=== PATIENT | female | born 1955 | race Two or more races ===

== ENCOUNTER 2016-12-06 20:30 | Inpatient (IN) | payer MEDICAID, MEDICARE, OTHER ==
[~2016-12-06] VITALS: Ht 165.1 cm; Wt 141.5 kg
[~2016-12-06 20:30] MED LIST: ASPI81TA2 PO; ATEN100T PO; BENA20TA2 PO; CALC-343 PO; CHOL100044 PO; CYAN100T3 PO; DIAZ10TA4 PO; FOLI1TAB16 PO; HYDR-429 PO; METF500T4 PO; OMEP20CA10 PO; PREG50CA PO; SIMV20TA6 PO
[2016-12-06 20:41] LABS: BASOPHILS # (AUTO) 0.2 /CMM (0.0-0.2); BASOPHILS % (AUTO) 2.6 % (0.0-2.0); DIFF TOTAL % 100 %; EOSINOPHILS # (AUTO) 0.3 /CMM (0.0-0.7); EOSINOPHILS % (AUTO) 4.5 % (0.0-6.0); HEMATOCRIT 40 % (33-45); HEMOGLOBIN 13.6 g/dL (11.5-14.8); LYMPHOCYTES # (AUTO) 1.9 /CMM (0.8-4.8); LYMPHOCYTES % (AUTO) 30.5 % (20.0-44.0); MEAN CORPUSCULAR HEMOGLOBIN 29 PG (26.0-33.0); MEAN CORPUSCULAR HGB CONC 34 g/dl (31.0-36.0); MEAN CORPUSCULAR VOLUME 86 fL (82-100); MONOCYTES # (AUTO) 0.3 /CMM (0.1-1.30); NEUTROPHILS # (AUTO) 3.6 /CMM (1.8-8.9); NEUTROPHILS % (AUTO) 57.4 % (43.0-81.0); PLATELET COUNT (AUTO) 162 /CMM (150-450); RED BLOOD CELL COUNT(AUTO) 4.68 MIL/uL (4.0-5.2); WHITE BLOOD COUNT (AUTO) 6.2 K/uL (4.3-11.0)
[2016-12-06 20:47] LABS: ANION GAP 12 (5-14); CALCIUM, SERUM 8.3 mg/dL (8.5-10.1); CARBON DIOXIDE 27 mmol/L (21-32); CHLORIDE 107 mmol/L (98-107); CREATININE 1.4 mg/dL (0.6-1.3); GFR 38 mL/min (>60); GLUCOSE 185 mg/dL (74-106); POTASSIUM 4.5 mmol/L (3.5-5.1); SODIUM SERUM 142 mmol/L (136-145); UREA NITROGEN, BLOOD 16 mg/dL (7-18)
[2016-12-06 20:54] LABS: ALANINE AMINOTRANSFERASE 16 U/L (12-78); ALBUMIN 3.2 g/dL (3.4-5.0); ASPARTATE AMINOTRANSFERASE 11 U/L (15-37); BILIRUBIN,TOTAL 0.3 mg/dL (0.2-1.0); TOTAL PROTEIN, SERUM 6.4 g/dL (6.4-8.2)
[2016-12-06 21:00] LABS: INR 0.91 (0.87-1.13); PROTHROMBIN TIME 9.8 SECS (9.5-12.7)
[2016-12-06] MEDS ORDERED: ENALAPRILAT DIHYD. (2.5MG/ML) 1.25 MG/ML VIAL IV ONE ×2 (21:00→21:01)
[2016-12-06 21:01] LABS: INDIRECT BILIRUBIN 0.3 mg/dL (0.0-1.1)
[2016-12-06 21:02] LABS: TROPONIN I < 0.017 ng/mL (0.00-0.056)
[2016-12-06] MEDS ORDERED: IV NS 0.9% 1,000 ML IV PRN ×2 (21:47→22:00)
[2016-12-06] MEDS ORDERED: ZOLPIDEM TARTRATE 5 MG TABLET PO PRN ×2 (22:00→22:15)
[2016-12-06] MEDS ORDERED: HYDROCODONE/APAP 5/325MG 1 EACH TABLET PO PRN ×2 (22:00→22:15)
[2016-12-06] MEDS ORDERED: DEXTROSE 50%-WATER 50 ML DISP.SYRIN IV PRN ×2 (22:00→22:15)
[2016-12-06] MEDS ORDERED: DIAZEPAM 10 MG TABLET PO SCH (22:00)
[2016-12-06] MEDS ORDERED: BLOOD SUGAR DIAGNOSTIC 1 EACH STRIP IN SCH (22:00)
[2016-12-06] MEDS ORDERED: ENOXAPARIN SODIUM 40 MG/0.4 ML DISP.SYRIN SQ SCH (22:00)
[2016-12-06] MEDS ORDERED: INSULIN REGULAR, HUMAN 100 UNIT/ML 3 ML VIAL SQ PRN (22:00)
[2016-12-06] MEDS ORDERED: Z GUARD REMEDY 2 OZ OINT TP PRN ×2 (22:00→22:15)
[2016-12-06] MEDS ORDERED: MORPHINE SULFATE INJ 2 MG/ML DISP.SYRIN IV PRN (22:00)
[2016-12-06] MEDS ORDERED: MAG HYDROX/AL HYDROX/SIMETH 30 ML UDC PO PRN ×2 (22:00→22:15)
[2016-12-06] MEDS ORDERED: ACETAMINOPHEN 325 MG TABLET PO PRN ×2 (22:00→22:15)
[2016-12-06] MEDS ORDERED: hydrALAZINE HCL IV 20 MG VIAL IV PRN ×2 (22:00→22:15)
[2016-12-06] MEDS ORDERED: ONDANSETRON HCL/PF 4 MG/2 ML VIAL IVP PRN ×2 (22:00→22:15)
[2016-12-06] MEDS ORDERED: BENAZEPRIL HCL 20 MG TABLET PO SCH (22:00)
[2016-12-06] MEDS ORDERED: MAGNESIUM HYDROXIDE 30 ML UDC PO PRN ×2 (22:00→22:15)
[2016-12-06 22:25] VITALS: BP 128/76
[2016-12-06 22:30] VITALS: BP 128/76
[2016-12-06] MEDS ORDERED: ENOXAPARIN SODIUM 40 MG/0.4 ML DISP.SYRIN SQ ONE (23:13)
[2016-12-06] MEDS ORDERED: SIMVASTATIN 20 MG TABLET ONE (23:14)
[2016-12-06] MEDS ORDERED: BENAZEPRIL HCL 20 MG TABLET ONE (23:21)
[2016-12-06] MEDS ORDERED: DIAZEPAM 5 MG TABLET ONE (23:22)
[2016-12-06] MEDS ORDERED: IV NS 0.9% 1,000 ML ONE (23:23)
[2016-12-06] MEDS: SIMVASTATIN 20 MG TABLET PO SCH (23:43)
[2016-12-06] MEDS: ENOXAPARIN SODIUM 40 MG/0.4 ML DISP.SYRIN SQ SCH (23:44)
[2016-12-06] MEDS ORDERED: MORPHINE SULFATE INJ 2 MG/ML DISP.SYRIN ONE (23:48)
[2016-12-06] MEDS: MORPHINE SULFATE INJ 2 MG/ML DISP.SYRIN IV PRN (23:52)
[2016-12-07] VITALS: BP 159/84
[2016-12-07] MEDS ORDERED: HYDROCODONE/APAP 5/325MG 1 EACH TABLET ONE (02:46)
[2016-12-07 04:00] VITALS: BP 132/66
[2016-12-07] MEDS ORDERED: MORPHINE SULFATE INJ 2 MG/ML DISP.SYRIN ONE (04:37)
[2016-12-07] MEDS: MORPHINE SULFATE INJ 2 MG/ML DISP.SYRIN IV PRN ×4 (04:48→19:38)
[2016-12-07] MEDS ORDERED: PANTOPRAZOLE 40 MG TABLET.DR PO SCH (07:30)
[2016-12-07 08:00] VITALS: BP_SYST 150; BP_SYST 162; BP_DIAS 78; BP_DIAS 80
[2016-12-07] MEDS: BLOOD SUGAR DIAGNOSTIC 1 EACH STRIP IN SCH ×4 (08:01→22:48)
[2016-12-07] MEDS: METFORMIN 500 MG TABLET PO SCH ×2 (08:34→18:24)
[2016-12-07] MEDS: CYANOCOBALAMIN 100 MCG TABLET PO SCH (08:34)
[2016-12-07] MEDS: FOLIC ACID 1 MG TABLET PO SCH (08:34)
[2016-12-07] MEDS: ATENOLOL 50 MG TABLET PO SCH (08:35)
[2016-12-07] MEDS: PANTOPRAZOLE 40 MG TABLET.DR PO SCH (08:36)
[2016-12-07] MEDS: ASPIRIN 81 MG TAB.CHEW PO SCH (08:36)
[2016-12-07] MEDS: CHOLECALCIFEROL 1,000 UNIT TABLET (VIT D3) PO SCH (08:41)
[2016-12-07] MEDS: INSULIN REGULAR, HUMAN 100 UNIT/ML 3 ML VIAL SQ PRN ×2 (08:51→22:50)
[2016-12-07 12:00] VITALS: BP_SYST 132; BP_SYST 157; BP_DIAS 66; BP_DIAS 78
[2016-12-07] MEDS: PREGABALIN 25 MG CAPSULE PO SCH ×2 (12:53→18:24)
[2016-12-07] MEDS: CODEINE/PROMETHAZINE HCL 5 ML UDC PO PRN ×2 (12:53→22:53)
[2016-12-07] MEDS: LOSARTAN POTASSIUM 50 MG TABLET PO SCH (12:54)
[2016-12-07] MEDS: CALCIUM CARBONATE 500 MG TAB.CHEW PO SCH (12:54)
[2016-12-07 16:00] VITALS: BP 137/66
[2016-12-07] MEDS ORDERED: LEVOFLOXACIN (750 MG) 750 MG TABLET PO SCH (16:00)
[2016-12-07] MEDS: LEVOFLOXACIN (750 MG) 750 MG TABLET PO SCH (18:24)
[2016-12-07 20:00] VITALS: BP 144/78
[2016-12-07] MEDS: SIMVASTATIN 20 MG TABLET PO SCH (22:48)
[2016-12-07] MEDS: DIAZEPAM 5 MG TABLET PO SCH (22:49)
[2016-12-07] MEDS: ENOXAPARIN SODIUM 40 MG/0.4 ML DISP.SYRIN SQ SCH (22:51)
[2016-12-08] VITALS: BP 160/79
[2016-12-08] MEDS: MORPHINE SULFATE INJ 2 MG/ML DISP.SYRIN IV PRN ×3 (01:37→14:42)
[2016-12-08 04:00] VITALS: BP 155/68
[2016-12-08 06:19] LABS: BASOPHILS # (AUTO) 0.1 /CMM (0.0-0.2); BASOPHILS % (AUTO) 0.8 % (0.0-2.0); DIFF TOTAL % 100 %; EOSINOPHILS # (AUTO) 0.3 /CMM (0.0-0.7); HEMATOCRIT 37 % (33-45); HEMOGLOBIN 12.5 g/dL (11.5-14.8); LYMPHOCYTES # (AUTO) 1.6 /CMM (0.8-4.8); LYMPHOCYTES % (AUTO) 25.8 % (20.0-44.0); MEAN CORPUSCULAR HEMOGLOBIN 29 PG (26.0-33.0); MEAN CORPUSCULAR HGB CONC 34 g/dl (31.0-36.0); MEAN CORPUSCULAR VOLUME 87 fL (82-100); MONOCYTES # (AUTO) 0.3 /CMM (0.1-1.30); NEUTROPHILS % (AUTO) 64.4 % (43.0-81.0); PLATELET COUNT (AUTO) 128 /CMM (150-450); RED BLOOD CELL COUNT(AUTO) 4.27 MIL/uL (4.0-5.2); WHITE BLOOD COUNT (AUTO) 6.2 K/uL (4.3-11.0)
[2016-12-08 06:32] LABS: ADD UA MICROSCOPIC NO; KETONES,URINE NEGATIVE (NEGATIVE); LEUKOCYTE ESTERASE ,URINE NEGATIVE (NEGATIVE)
[2016-12-08 06:32] LABS: CALCIUM, SERUM 8.1 mg/dL (8.5-10.1); CREATININE 0.9 mg/dL (0.6-1.3); POTASSIUM 4.3 mmol/L (3.5-5.1)
[2016-12-08] MEDS: INSULIN REGULAR, HUMAN 100 UNIT/ML 3 ML VIAL SQ PRN ×3 (06:38→22:05)
[2016-12-08] MEDS: BLOOD SUGAR DIAGNOSTIC 1 EACH STRIP IN SCH ×4 (06:38→22:01)
[2016-12-08] MEDS: PANTOPRAZOLE 40 MG TABLET.DR PO SCH (06:38)
[2016-12-08 08:00] VITALS: BP 159/79
[2016-12-08] MEDS: FOLIC ACID 1 MG TABLET PO SCH (08:02)
[2016-12-08] MEDS: CALCIUM CARBONATE 500 MG TAB.CHEW PO SCH (08:03)
[2016-12-08] MEDS: ASPIRIN 81 MG TAB.CHEW PO SCH (08:03)
[2016-12-08] MEDS: CYANOCOBALAMIN 100 MCG TABLET PO SCH (08:04)
[2016-12-08] MEDS: LOSARTAN POTASSIUM 50 MG TABLET PO SCH (08:05)
[2016-12-08] MEDS: ATENOLOL 50 MG TABLET PO SCH (08:06)
[2016-12-08] MEDS: METFORMIN 500 MG TABLET PO SCH ×2 (08:09→17:11)
[2016-12-08] MEDS: CHOLECALCIFEROL 1,000 UNIT TABLET (VIT D3) PO SCH (08:10)
[2016-12-08] MEDS: PREGABALIN 25 MG CAPSULE PO SCH ×2 (08:12→17:10)
[2016-12-08 08:51] LABS: PHOSPHORUS 2.9 mg/dL (2.5-4.9)
[2016-12-08] MEDS ORDERED: ALBUTEROL FS 2.5 MG/0.5 ML VIAL.NEB NEB PRN (10:30)
[2016-12-08] MEDS ORDERED: IPRATROPIUM BROMIDE 14 GM INHALER (or 12.9 GM) IH PRN (10:30)
[2016-12-08] MEDS ORDERED: SECONDARY IV SET 1 EA INFUS.SET MC ONE (10:50)
[2016-12-08] MEDS: Magnesium 1GM/D5W 100ML PREMIX 100 ML IV SCH ×4 (10:54→23:31)
[2016-12-08] MEDS ORDERED: IPRATROPIUM NEB FS 0.5 MG/2.5 ML AMPUL.NEB NEB PRN (11:00)
[2016-12-08 12:00] VITALS: BP 137/84
[2016-12-08] MEDS: methylPREDNISolone SOD SUCC 40 MG/ML VIAL IV SCH ×2 (12:51→17:10)
[2016-12-08 16:00] VITALS: BP 154/87
[2016-12-08 20:00] VITALS: BP 146/70
[2016-12-08] MEDS ORDERED: Magnesium 1GM/D5W 100ML PREMIX 100 ML IV ONE ×2 (20:25→20:26)
[2016-12-08] MEDS: ENOXAPARIN SODIUM 40 MG/0.4 ML DISP.SYRIN SQ SCH (22:01)
[2016-12-08] MEDS: DIAZEPAM 5 MG TABLET PO SCH (22:01)
[2016-12-08] MEDS: SIMVASTATIN 20 MG TABLET PO SCH (22:01)
[2016-12-09] MEDS: MORPHINE SULFATE INJ 2 MG/ML DISP.SYRIN IV PRN ×4 (02:30→22:23)
[2016-12-09] MEDS: CODEINE/PROMETHAZINE HCL 5 ML UDC PO PRN ×2 (02:30→12:14)
[2016-12-09 04:00] VITALS: BP 137/62
[2016-12-09] MEDS: PANTOPRAZOLE 40 MG TABLET.DR PO SCH (06:54)
[2016-12-09 06:56] LABS: BASOPHILS # (AUTO) 0.1 /CMM (0.0-0.2); BASOPHILS % (AUTO) 0.8 % (0.0-2.0); DIFF TOTAL % 100 %; HEMATOCRIT 40 % (33-45); LYMPHOCYTES # (AUTO) 0.9 /CMM (0.8-4.8); LYMPHOCYTES % (AUTO) 13.1 % (20.0-44.0); MEAN CORPUSCULAR HEMOGLOBIN 28 PG (26.0-33.0); MEAN CORPUSCULAR HGB CONC 32 g/dl (31.0-36.0); MEAN CORPUSCULAR VOLUME 88 fL (82-100); MONOCYTES # (AUTO) 0.3 /CMM (0.1-1.30); MONOCYTES % (AUTO) 4.5 % (2.0-12.0); NEUTROPHILS # (AUTO) 5.3 /CMM (1.8-8.9); NEUTROPHILS % (AUTO) 81.6 % (43.0-81.0); PLATELET COUNT (AUTO) 165 /CMM (150-450); WHITE BLOOD COUNT (AUTO) 6.5 K/uL (4.3-11.0)
[2016-12-09 07:18] LABS: CALCIUM, SERUM 8.5 mg/dL (8.5-10.1); PHOSPHORUS 2.7 mg/dL (2.5-4.9); POTASSIUM 4.8 mmol/L (3.5-5.1)
[2016-12-09 08:00] VITALS: BP 142/84
[2016-12-09] MEDS: BLOOD SUGAR DIAGNOSTIC 1 EACH STRIP IN SCH ×4 (08:16→21:14)
[2016-12-09] MEDS: ATENOLOL 50 MG TABLET PO SCH (08:17)
[2016-12-09] MEDS: CHOLECALCIFEROL 1,000 UNIT TABLET (VIT D3) PO SCH (08:18)
[2016-12-09] MEDS: ASPIRIN 81 MG TAB.CHEW PO SCH (08:18)
[2016-12-09] MEDS: CYANOCOBALAMIN 100 MCG TABLET PO SCH (08:18)
[2016-12-09] MEDS: CALCIUM CARBONATE 500 MG TAB.CHEW PO SCH (08:18)
[2016-12-09] MEDS: FOLIC ACID 1 MG TABLET PO SCH (08:19)
[2016-12-09] MEDS: methylPREDNISolone SOD SUCC 40 MG/ML VIAL IV SCH ×3 (08:20→16:40)
[2016-12-09] MEDS: LOSARTAN POTASSIUM 50 MG TABLET PO SCH (08:20)
[2016-12-09] MEDS: METFORMIN 500 MG TABLET PO SCH ×2 (08:20→16:40)
[2016-12-09] MEDS: PREGABALIN 25 MG CAPSULE PO SCH ×2 (08:21→16:40)
[2016-12-09] MEDS: INSULIN REGULAR, HUMAN 100 UNIT/ML 3 ML VIAL SQ PRN ×4 (08:22→21:15)
[2016-12-09] MEDS: MUPIROCIN OINT 2% 22 GM TUBE SCH ×2 (10:28→20:32)
[2016-12-09 16:00] VITALS: BP 144/78
[2016-12-09] MEDS: LEVOFLOXACIN (750 MG) 750 MG TABLET PO SCH (16:40)
[2016-12-09] MEDS: TAMOXIFEN CITRATE 10 MG TABLET PO SCH (18:11)
[2016-12-09 20:00] VITALS: BP 162/89
[2016-12-09] MEDS: DIAZEPAM 5 MG TABLET PO SCH (21:14)
[2016-12-09] MEDS: SIMVASTATIN 20 MG TABLET PO SCH (21:14)
[2016-12-09] MEDS: ENOXAPARIN SODIUM 40 MG/0.4 ML DISP.SYRIN SQ SCH (21:16)
[2016-12-10] MEDS: MORPHINE SULFATE INJ 2 MG/ML DISP.SYRIN IV PRN (03:10)
[2016-12-10 04:00] VITALS: BP 127/62
[2016-12-10 08:00] VITALS: BP 109/61
[2016-12-10] MEDS: METFORMIN 500 MG TABLET PO SCH (08:44)
[2016-12-10] MEDS: CYANOCOBALAMIN 100 MCG TABLET PO SCH (08:44)
[2016-12-10] MEDS: PANTOPRAZOLE 40 MG TABLET.DR PO SCH (08:44)
[2016-12-10] MEDS: CHOLECALCIFEROL 1,000 UNIT TABLET (VIT D3) PO SCH (08:45)
[2016-12-10] MEDS: CALCIUM CARBONATE 500 MG TAB.CHEW PO SCH (08:45)
[2016-12-10] MEDS: PREGABALIN 25 MG CAPSULE PO SCH (08:45)
[2016-12-10] MEDS: ASPIRIN 81 MG TAB.CHEW PO SCH (08:45)
[2016-12-10] MEDS: TAMOXIFEN CITRATE 10 MG TABLET PO SCH (08:46)
[2016-12-10] MEDS: ATENOLOL 50 MG TABLET PO SCH (08:46)
[2016-12-10 08:47] VITALS: BP 109/61
[2016-12-10] MEDS: LOSARTAN POTASSIUM 50 MG TABLET PO SCH (08:47)
[2016-12-10] MEDS: MUPIROCIN OINT 2% 22 GM TUBE SCH (08:47)
[2016-12-10] MEDS: methylPREDNISolone SOD SUCC 40 MG/ML VIAL IV SCH (08:47)
[2016-12-10] MEDS: FOLIC ACID 1 MG TABLET PO SCH (08:47)
[2016-12-10] MEDS: INSULIN REGULAR, HUMAN 100 UNIT/ML 3 ML VIAL SQ PRN (08:48)
[2016-12-10] MEDS: BLOOD SUGAR DIAGNOSTIC 1 EACH STRIP IN SCH (08:48)
== END 2016-12-10 11:35 | disposition home or self-care (01) | DRG 304 ==
LOC: ER 20:30 → TELE 22:05 → TELE1 22:22 → TELE-TD 22:24 → MEDSG1 12-08 11:34
PROVIDERS: ADMIT Family Medicine; ATTEND Family Medicine
DX: I16.0 Hypertensive urgency (principal); J15.9 Unspecified bacterial pneumonia; J45.901 Unspecified asthma with (acute) exacerbation; Z68.43 Body mass index [BMI] 50.0-59.9, adult; D68.59 Other primary thrombophilia; E44.0 Moderate protein-calorie malnutrition; R29.810 Facial weakness; M79.7 Fibromyalgia; E11.9 Type 2 diabetes mellitus without complications; E66.01 Morbid (severe) obesity due to excess calories; Z85.3 Personal history of malignant neoplasm of breast; Z90.12 Acquired absence of left breast and nipple; K57.90 Diverticulosis of intestine, part unspecified, without perforation or abscess without bleeding; Z98.890 Other specified postprocedural states; Z91.14 Patient's other noncompliance with medication regimen; Z22.322 Carrier or suspected carrier of Methicillin resistant Staphylococcus aureus; E83.42 Hypomagnesemia; Z92.21 Personal history of antineoplastic chemotherapy; Z92.3 Personal history of irradiation; R79.89 Other specified abnormal findings of blood chemistry; K21.9 Gastro-esophageal reflux disease without esophagitis; E78.5 Hyperlipidemia, unspecified; G47.30 Sleep apnea, unspecified; Z86.73 Personal history of transient ischemic attack (TIA), and cerebral infarction without residual deficits; K43.9 Ventral hernia without obstruction or gangrene
CPT/HCPCS: 36415; 70450-TC; 71010-TC; 80048-TC; 80076-TC; 81000-TC; 82962-TC; 83735-TC; 84100-TC; 84484-TC; 85025-TC; 85730-TC; 87040-TC; 87070-TC; 87081-TC; 93307-TC; 97001-TC; 97110-TC; 97116-TC; 97530-TC; A4606; A6402; J0360; J1650; J1815; J2270; J2920; J3475; J3490; J7030; Z7610